=== PATIENT | female | born 1945 | race Caucasian/White ===

== ENCOUNTER 2017-12-16 08:09 | Emergency (ER) | payer OTHER ==
[~2017-12-16] VITALS: Ht 152.4 cm; Wt 81.9 kg
[~2017-12-16 08:09] MED LIST: OMEP20CA5 PO
[2017-12-16 08:29] VITALS: BP 167/78; PULSE 90; RESP 16; TEMP 99; O2SAT 95
[2017-12-16] MEDS ORDERED: ZOLO50TA PO (09:36)
[2017-12-16] MEDS ORDERED: OMEP20TA93 PO (09:36)
[2017-12-16] MEDS ORDERED: ALPR.5 PO (09:36)
[2017-12-16 10:13] LABS: AUTOMATED NEUTROPHIL # 8.2 TH/MM3 (1.8-7.7); BASOPHIL # 0.1 TH/MM3 (0-0.2); BASOPHIL % 1.3 % (0.0-2.0); EOSINOPHIL % 0.4 % (0.0-4.0); HEMATOCRIT 43.9 % (35.0-46.0); LYMPH % 13.1 % (9.0-44.0); LYMPHOCYTE # 1.4 TH/MM3 (1.0-4.8); MEAN CELL VOLUME 83.3 FL (80.0-100.0); MEAN CORPUSCULAR HEMOGLOBIN 26.6 PG (27.0-34.0); MEAN CORPUSCULAR HGB CONC 31.9 % (32.0-36.0); MEAN PLATELET VOLUME 8.3 FL (7.0-11.0); MONO % 7.6 % (0.0-8.0); MONOCYTE # 0.8 TH/MM3 (0-0.9); NEUT % 77.6 % (16.0-70.0); PLATELET COUNT 328 TH/MM3 (150-450); RED BLOOD COUNT 5.27 MIL/MM3 (4.00-5.30); WHITE BLOOD COUNT 10.5 TH/MM3 (4.0-11.0)
[2017-12-16 10:14] LABS: BILIRUBIN, URINE NEG (NEG); BLOOD, URINE SMALL (NEG); GLUCOSE,URINE NEG (NEG); KETONE, URINE NEG (NEG); NITRITE,URINE NEG (NEG); URINE COLOR YELLOW (YELLW/STRAW); URINE LEUKOCYTE ESTERASE SMALL (NEG)
[2017-12-16 10:22] LABS: MUCUS URINE OCC /lpf (OCC); RBC, URINE 0-3 /hpf (0-3)
[2017-12-16 10:23] LABS: BACTERIA, URINE MOD /hpf; SQUAMOUS EPITHELIAL CELL URINE 0-5 /hpf (0-5)
[2017-12-16 10:24] LABS: CHLORIDE 103 MEQ/L (98-107); SODIUM (NA) 136 MEQ/L (136-145)
[2017-12-16 10:27] LABS: CALCIUM 9.4 MG/DL (8.5-10.1)
[2017-12-16 10:28] LABS: ALBUMIN 3.4 GM/DL (3.4-5.0); BICARBONATE 24.5 MEQ/L (21.0-32.0); BLOOD UREA NITROGEN 13 MG/DL (7-18); GLUCOSE,RANDOM 105 MG/DL (74-106)
[2017-12-16 10:31] LABS: ALT (GPT) 19 U/L (10-53); AST (GOT) 18 U/L (15-37); CREATININE 0.81 MG/DL (0.50-1.00); GLOMERULAR FILTRATION RATE 69 ML/MIN (>89)
[2017-12-16 10:33] LABS: TOTAL BILIRUBIN ADULT 0.8 MG/DL (0.2-1.0); TOTAL PROTEIN 7.8 GM/DL (6.4-8.2)
[2017-12-16 10:34] LABS: ALKALINE PHOSPHATASE 87 U/L (45-117)
--- NOTE | 2017-12-16 11:28 | PD ---
HPI Chief Complaint: Flank/Kidney Pain Time Seen by Provider: 11:18 Travel History International Travel<30 days: No Contact w/Intl Traveler<30days: No Traveled to known affect area: No History of Present Illness HPI This 72-year-old female says that the last couple of nights she has had some pain in the right upper quadrant oral right side of the chest. She says it started Saturday night. The pain then was quite bad for a couple of hours. She had any recurrence of the pain again last night. She does not recall any unusual foods. She has no history of abdominal surgery. She has had hip replacements. She has no history of hypertension or diabetes. She does not smoke. She has no history of lung disease. She did have a coughing spell Saturday night. She does not feel short of breath. He had some mild nausea with the pain. She says the pain was quite severe PFSH Past Medical History Arthritis: Yes Autoimmune Disease: No Blood Disorders: No Anxiety: Yes Depression: Yes Cancer: No Cardiovascular Problems: No Diabetes: No Endocrine: No Gastrointestinal Disorders: Yes GERD: Yes Genitourinary: No Immune Disorder: No Musculoskeletal: Yes Neurologic: No Psychiatric: Yes Reproductive: No Respiratory: No Immunizations Current: Yes Thyroid Disease: No Influenza Vaccination: No ?: Not Tubal Ligation: Yes Past Surgical History Gynecologic Surgery: Yes (HYSTERECTOMY, TUBAL LIG.,) Hysterectomy: Yes Joint Replacement: Yes (BILAT HIP REPLACEMENT) Oral Surgery: Yes (TONSILLS) Pacemaker: No Tonsillectomy: Yes Social History Alcohol Use: No Tobacco Use: No Substance Use: No Allergies-Medications (Allergen,Severity, Reaction): Coded Allergies: codeine (Unverified Allergy, Severe, N/V, 12/16/17) Reported Meds & Prescriptions Reported Meds & Active Scripts Active Reported Zoloft (Sertraline HCl) 50 Mg Tab 50 Mg PO HS Xanax (Alprazolam) 0.5 Mg Tab 0.5 Mg PO BID PRN Omeprazole 20 Mg Tab 20 Mg PO EVERY OTHER DAY Review of Systems General / Constitutional: No: Fever, Chills Eyes: No: Diploplia, Blurred Vision HENT: No: Headaches, Vertigo Cardiovascular: Positive: Chest Pain or Discomfort, No: Palpitations Respiratory: No: Cough, Shortness of Breath Gastrointestinal: Positive: Nausea, Abdominal Pain Genitourinary: No: Urgency, Frequency Musculoskeletal: No: Myalgias, Arthralgias Neurologic: No: Weakness Hematologic/Lymphatic: No: Easy Bruising Physical Exam Narrative GENERAL: Well-developed female SKIN: Focused skin assessment warm/dry. HEAD: Atraumatic. Normocephalic. EYES: Pupils equal and round. No scleral icterus. No injection or drainage. ENT: No nasal bleeding or discharge. Mucous membranes pink and moist. NECK: Trachea midline. No JVD. CARDIOVASCULAR: Regular rate and rhythm. No murmur appreciated. RESPIRATORY: No accessory muscle use. Clear to auscultation. Breath sounds equal bilaterally. GASTROINTESTINAL: Abdomen soft, mild right upper quadrant tenderness without guarding or rigidity, nondistended. Hepatic and splenic margins not palpable. MUSCULOSKELETAL: No obvious deformities. No clubbing. No cyanosis. No edema. NEUROLOGICAL: Awake and alert. No obvious cranial nerve deficits. Motor grossly within normal limits. Normal speech. PSYCHIATRIC: Appropriate mood and affect; insight and judgment normal. Data Data Last Documented VS Vital Signs Date Time Temp Pulse Resp B/P (MAP) Pulse Ox O2 Delivery O2 Flow Rate FiO2 12/16/17 13:50 82 18 155/68 (97) 94 Room Air 12/16/17 08:29 99.0 Orders Orders Urinalysis - C+S If Indicated (12/16/17 10:04) Complete Blood Count With Diff (12/16/17 10:04) Comprehensive Metabolic Panel (12/16/17 10:04) Urine Culture (12/16/17 09:20) Lipase (12/16/17 11:24) Chest, Pa & Lat (12/16/17 11:25) Us Abdomen Gallbladder (12/16/17 11:25) Labs Laboratory Tests Test 12/16/17 09:20 12/16/17 09:25 Urine Color YELLOW Urine Turbidity SL CLOUDY Urine pH 6.0 Urine Specific [place] 1.015 Urine Protein NEG mg/dL Urine Glucose (UA) NEG mg/dL Urine Ketones NEG mg/dL Urine Occult Blood SMALL Urine Nitrite NEG Urine Bilirubin NEG Urine Urobilinogen 0.2 MG/DL Urine Leukocyte Esterase SMALL Urine RBC 0-3 /hpf Urine WBC 3-5 /hpf Urine Squamous Epithelial Cells 0-5 /hpf Urine Bacteria MOD /hpf Urine Mucus OCC /lpf Microscopic Urinalysis Comment CULTURE INDICATED White Blood Count 10.5 TH/MM3 Red Blood Count 5.27 MIL/MM3 Hemoglobin 14.0 GM/DL Hematocrit 43.9 % Mean Corpuscular Volume 83.3 FL Mean Corpuscular Hemoglobin 26.6 PG Mean Corpuscular Hemoglobin Concent 31.9 % Red Cell Distribution Width 15.0 % Platelet Count 328 TH/MM3 Mean Platelet Volume 8.3 FL Neutrophils (%) (Auto) 77.6 % Lymphocytes (%) (Auto) 13.1 % Monocytes (%) (Auto) 7.6 % Eosinophils (%) (Auto) 0.4 % Basophils (%) (Auto) 1.3 % Neutrophils # (Auto) 8.2 TH/MM3 Lymphocytes # (Auto) 1.4 TH/MM3 Monocytes # (Auto) 0.8 TH/MM3 Eosinophils # (Auto) 0.0 TH/MM3 Basophils # (Auto) 0.1 TH/MM3 CBC Comment AUTO DIFF Differential Comment AUTO DIFF CONFIRMED Blood Urea Nitrogen 13 MG/DL Creatinine 0.81 MG/DL Random Glucose 105 MG/DL Total Protein 7.8 GM/DL Albumin 3.4 GM/DL Calcium Level 9.4 MG/DL Alkaline Phosphatase 87 U/L Aspartate Amino Transf (AST/SGOT) 18 U/L Alanine Aminotransferase (ALT/SGPT) 19 U/L Total Bilirubin 0.8 MG/DL Sodium Level 136 MEQ/L Potassium Level 4.3 MEQ/L Chloride Level 103 MEQ/L Carbon Dioxide Level 24.5 MEQ/L Anion Gap 9 MEQ/L Estimat Glomerular Filtration Rate 69 ML/MIN Lipase 104 U/L [facility] Medical Decision Making Medical Screen Exam Complete: Yes Emergency Medical Condition: Yes Medical Record Reviewed: Yes Differential Diagnosis Differential includes chest wall pain, nonspecific abdominal pain, cholelithiasis, cholecystitis Narrative Course Lab work is normal. White count is not elevated. Liver function tests are normal. Ultrasound of the abdomen and pelvis is negative for cholecystitis or cholelithiasis. Patient will be released etiology for the pain has not been determined. This may be musculoskeletal pain . If it persists further workup will be needed Diagnosis Primary Impression: Right upper quadrant pain Additional Instructions: Return to ED if increasing pain, follow-up with your own medical doctor Disposition: 01 DISCHARGE HOME Condition: Stable Kris Michael MD Dec 16, 2017 11:28
[2017-12-16 12:09] VITALS: BP 145/68; PULSE 76; RESP 16; O2SAT 96
--- NOTE | 2017-12-16 13:40 | RADRPT ---
EXAM DATE/TIME: 12/16/2017 12:18 [facility] COMPARISON: No previous studies available for comparison. INDICATIONS : Right upper quadrant pain. MEDICAL HISTORY : Arthritis. SURGICAL HISTORY : Hysterectomy. Tonsillectomy. Tubal ligation. Total bilateral hip replacement. ENCOUNTER: Initial ACUITY: 3 days PAIN SCORE: 4/10 LOCATION: Right upper quadrant MEASUREMENTS: LIVER: 13.7 cm length COMMON DUCT: 4 mm RIGHT KIDNEY: 11.2 x 4.0 x 4.3 cm FINDINGS: LIVER: Normal echotexture without focal lesion or ductal dilatation. COMMON DUCT: No intraluminal mass or stone visualized. GALLBLADDER: Contains no stones, demonstrates no wall thickening or pericholecystic fluid. PANCREAS: The visualized portions are within normal limits. RIGHT KIDNEY: No evidence of hydronephrosis, stone, or mass. CONCLUSION: 1. Unremarkable right upper quadrant ultrasound examination. Specifically, no cholelithiasis or sonog raphic evidence for cholecystitis. Frank Machado MD on December 16, 2017 at 13:37 Board Certified Radiologist. This report was verified electronically.
--- NOTE | 2017-12-16 13:41 | RADRPT ---
EXAM DATE/TIME: 12/16/2017 12:15 [facility] COMPARISON: No previous studies available for comparison. INDICATIONS : Right chest pain MEDICAL HISTORY : None. SURGICAL HISTORY : None. ENCOUNTER: Initial ACUITY: 1 day PAIN SCORE: 4/10 LOCATION: chest FINDINGS: Minimal parietal changes left base. Right lung clear.. The cardiomediastinal contours are unremarka ble. Osseous structures are intact. CONCLUSION: Minimal parenchymal changes left base.. Jluis Ca MD FACR on December 16, 2017 at 13:38 Board Certified Radiologist. This report was verified electronically.
[2017-12-16 13:50] VITALS: BP 155/68; PULSE 82; RESP 18; O2SAT 94
== END 2017-12-16 14:13 | disposition home or self-care (01) ==
LOC: PHED 08:09
DX: R10.11 Right upper quadrant pain (principal); M19.90 Unspecified osteoarthritis, unspecified site; F32.9 Major depressive disorder, single episode, unspecified; F41.9 Anxiety disorder, unspecified; K21.9 Gastro-esophageal reflux disease without esophagitis; Z96.643 Presence of artificial hip joint, bilateral
CPT/HCPCS: 71046; 76705; 80053; 81001; 83690; 85025; 87086; 99285